=== PATIENT | male | born 1960 | race Caucasian/White ===

== ENCOUNTER 2016-11-26 20:14 | Emergency (ER) | payer BC ==
--- NOTE | 2016-11-26 21:28 | EDM.PDOC ---
ED HPI ENT - General Chief Complaint: ENT Problem Stated Complaint: BONE STUCK IN THROAT Time Seen by Provider: 11/26/16 21:05 Source of Information: Reports: Patient History Limitations: Reports: No limitations - History of Present Illness INITIAL COMMENTS - FREE TEXT/NARRATIVE: HISTORY AND PHYSICAL: History of present illness: [] Review of systems: As per history of present illness and below otherwise all systems reviewed and negative. Past medical history: As per history of present illness and as reviewed below otherwise noncontributory. Surgical history: As per history of present illness and as reviewed below otherwise noncontributory. Social history: No reported history of drug or alcohol abuse. Family history: As per history of present illness and as reviewed below otherwise noncontributory. Physical exam: Well-appearing no voice changes no stridor normal oropharynx midline trachea normal exam HEENT: Normocephalic, atraumatic, pupils normal and symmetrical, supple neck, no meningismus, normal color Lungs: Normal and symmetrical chest wall excursion bilateral with no tachypnea or increased work of breathing, grossly normal chest exam Heart: No tachycardia in triage Abdomen: Normal-appearing, nondistended, no visible mass or asymmetry Pelvis: Normal-appearing Genitourinary: Deferred Rectal exam: Deferred Extremities: Atraumatic, normal use and range of motion, no visible evidence of gross neurovascular compromise Neuro: Awake, alert, oriented. Normal and appropriate mental status. Cranial nerves grossly unremarkable. Motor function normal. Nonfocal neurologic exam. Diagnostics: [] Therapeutics: [] Impression: [] Plan: [Signs and symptoms consistent with suspected foreign body sensation for swallowing a fishbone however discussed with patient though less likely possibility of retained fishbone foreign body is exists. Soft tissue neck X-ray with no abnormal findings.] Discussed with patient importance of followup with ENT in the morning for reevaluation and to address nasopharyngeal laryngoscope evaluation and treatment of possible foreign body. Patient feels well and wants to go home. No further workup or treatment indicated. Strict return precautions given Definitive disposition and diagnosis as appropriate pending reevaluation and review of above. - Related Data Allergies/ADRs: Allergies Allergy/AdvReac Type Severity Reaction Status Date / Time No Known Allergies Allergy Verified 11/26/16 20:21 Home Meds: Home Meds Levothyroxine [Levothyroxine] 175 mcg PO DAILY 09/09/14 [History] Past Medical History Endocrine/Metabolic History: Reports: Hyperthyroidism - Infectious Disease History Infectious Disease History: Reports: Chicken pox - Past Surgical History Other Musculoskeletal Surgeries/Procedures:: left knee surgery Social & Family History - Family History Family Medical History: Noncontributory - Tobacco Use Smoking Status *Q: Current Every Day Smoker Years of Tobacco use: 30 Packs/Tins Daily: 0.5 - Caffeine Use Caffeine Use: Reports: Coffee Caffeine Use Comment: 3cups/day - Alcohol Use Days Per Week of Alcohol Use: 1 Number of Drinks Per Day: 1 Total Drinks Per Week: 1 - Recreational Drug Use Recreational Drug Use: No ED ROS ENT - Review of Systems Review Of Systems: See Below (History of present illness) ED EXAM, ENT - Physical Exam Exam: See Below (History of present illness) Course - Vital Signs Last Recorded V/S: Last Vital Signs Temp 36.6 C 11/26/16 20:17 Pulse 71 11/26/16 22:10 Resp 16 11/26/16 22:10 BP 130/72 11/26/16 22:10 Pulse Ox 98 11/26/16 22:10 - Orders/Labs/Meds Orders: Active Orders 24 hr Category Date Time Status Neck Soft Tissue [CR] Stat Exams 11/26/16 21:12 Taken Departure - Departure Time of Disposition: 21:55 Disposition: Home, Self-Care 01 Condition: good Clinical Impression: Sensation of foreign body in throat Instructions: Swallowed Foreign Body, Adult, [id number] Referrals: Samuel Branham MD [Primary Care Provider] - Forms: ED Department Discharge Additional Instructions: You have foreign body sensation in your throat from a fish bone. We are unable to see any bones on your neck x-ray. Most times the bone has caused some mild injury to your mucosa ( mucous membranes of your throat) but the offending bone has typically passed to be digested. Since she still the foreign body sensation though, we recommend that you followup with Dr. Basia Kat the ear nose and throat at [phone]. Call in the morning for an appointment tomorrow. Be sure to mention that you were in the emergency department and it feels like you still have a fish bone stuck in her throat. Return to the emergency department for any new severe or worsening symptoms - My Orders Last 24 Hours: My Active Orders 11/26/16 21:12 Neck Soft Tissue [CR] Stat - Assessment/Plan Last 24 Hours: My Active Orders 11/26/16 21:12 Neck Soft Tissue [CR] Stat
[2016-11-26 22:29] VITALS: BP 130/72
--- NOTE | 2016-11-27 12:29 | CR ---
EXAM DATE: 11/26/16 PATIENT'S AGE: 56 Patient: HUI ABDI Facility: [place], [place] Site . Site : [id number] Study: XRay ST Neck [id number]/[id number] 9:25:53 PM Ordering Physician: Juanjose Meyers Final Report: Indication: Possibly swallowed fish bone. Technique: AP and lateral views of the neck. Comparison: None. Impression: There is no appreciable foreign body/bone identified in the upper airway. No significant prevertebral soft tissue swelling or retropharyngeal gas is seen. The epiglottis appears normal. There is evidence of chronic disc degeneration at C5-6 and C6-7. Dictated by Mode Sampson MD @ 11/26/2016 9:30:34 PM Dictated by: Mode Sampson MD @ 11/26/2016 21:30:38 (Electronic Signature) Report Signed by Proxy and Original Signed Document filed in the Medical Record. RILEY
== END 2016-11-26 22:10 | disposition home or self-care (01) ==
LOC: MW.ED 20:14
DX: R09.89 Other specified symptoms and signs involving the circulatory and respiratory systems (principal); F17.210 Nicotine dependence, cigarettes, uncomplicated; Z98.890 Other specified postprocedural states; E03.9 Hypothyroidism, unspecified; Z79.899 Other long term (current) drug therapy
CPT/HCPCS: 70360; 70360-26; 99282; 99283

== ENCOUNTER 2016-11-27 13:22 | Day surgery (SDC) | payer BC ==
[~2016-11-27 13:22] MED LIST: Lidocaine 2% 5 ML SDV ONE; Midazolam 1 MG/ML 2 ML SDV ONE; Ondansetron 4 MG/2 ML SDV ONE; Propofol 200 MG/20 ML SDV ONE; Rocuronium 10 MG/ML 10 ML Syringe ONE; Succinylcholine/Normal Saline 200 MG/10 ML Syringe ONE; fentaNYL 100 MCG/2 ML SDV ONE
--- NOTE | 2016-11-27 14:06 | PCM.PREANE ---
Preanesthetic Assessment - Anesthesia/Transfusion/Family Hx Anesthesia History: Prior Anesthesia Reaction Type of Anesthesia Reaction: Excessive Nausea/Vomiting Family History of Anesthesia Reaction: No Transfusion History: No Prior Transfusion(s) - Review of Systems General: No Symptoms Pulmonary: No Symptoms Cardiovascular: No Symptoms Gastrointestinal: No symptoms Neurological: No Symptoms Other: Reports: None - Physical Assessment NPO Status Date: 11/26/16 Height: 1.83 m Weight: 98.43 kg ASA Class: 2 Mental Status: Alert & Oriented x3 Airway Class: Mallampati = 1 Dentition: Reports: Normal Dentition ROM/Head Extension: Full Lungs: Clear to auscultation, Normal respiratory effort Cardiovascular: Regular Rate, Regular Rhythm - Allergies Allergies/Adverse Reactions: Allergies Allergy/AdvReac Type Severity Reaction Status Date / Time No Known Allergies Allergy Verified 11/26/16 20:21 - Anesthesia Plan Pre-Op Medication Ordered: None - Acknowledgements Anesthesia Type Planned: General Anesthesia Pt an Appropriate Candidate for the Planned Anesthesia: Yes Alternatives and Risks of Anesthesia Discussed w Pt/Guardian: Yes Pt/Guardian Understands and Agrees with Anesthesia Plan: Yes Additional Comments: GET PreAnesthesia Questionnaire HEENT History: Reports: None Cardiovascular History: Reports: None Respiratory History: Reports: None Gastrointestinal History: Reports: None Genitourinary History: Reports: None Musculoskeletal History: Reports: None Neurological History: Reports: Other (see below) Other Neuro History: hx of motion sickness Psychiatric History: Reports: None Endocrine/Metabolic History: Reports: Hypothyroidism Hematologic History: Reports: None Immunologic History: Reports: None Oncologic (Cancer) History: Reports: None Dermatologic History: Reports: Eczema Other Dermatologic History: uses OTC medication - Infectious Disease History Infectious Disease History: Reports: Chicken pox - Past Surgical History Head Surgeries/Procedures: Reports: None HEENT Surgical History: Reports: None Cardiovascular Surgical History: Reports: None Respiratory Surgical History: Reports: None GI Surgical History: Reports: None Male Surgical History: Reports: None Endocrine Surgical History: Reports: None Neurological Surgical History: Reports: None Musculoskeletal Surgical History: Reports: Arthroscopic knee Other Musculoskeletal Surgeries/Procedures:: left knee, possibly has metal fragment in knee Oncologic Surgical History: Reports: None - SUBSTANCE USE Smoking Status *Q: Current Every Day Smoker Tobacco Use Within Last Twelve Months: Cigarettes Days Per Week of Alcohol Use: 1 Number of Drinks Per Day: 1 Total Drinks Per Week: 1 Recreational Drug Use History: No - HOME MEDS Home Medications: Home Meds Levothyroxine [Levothyroxine] 175 mcg PO DAILY 09/09/14 [History] - CURRENT (IN HOUSE) MEDS Current Meds: Current Medications Discontinued Medications Fentanyl (Sublimaze) Confirm Administered Dose 100 mcg .ROUTE .STK-MED ONE Stop: 11/27/16 13:23 Lidocaine (Xylocaine-Mpf 2%) Confirm Administered Dose 5 ml .ROUTE .STK-MED ONE Stop: 11/27/16 13:22 Midazolam HCl (Versed 1 Mg/Ml) Confirm Administered Dose 2 mg .ROUTE .STK-MED ONE Stop: 11/27/16 13:23 Ondansetron HCl (Zofran) Confirm Administered Dose 4 mg .ROUTE .STK-MED ONE Stop: 11/27/16 13:22 Propofol (Diprivan 20 Ml) Confirm Administered Dose 200 mg .ROUTE .STK-MED ONE Stop: 11/27/16 13:23 Rocuronium Hebo (Zemuron) Confirm Administered Dose 100 mg .ROUTE .STK-MED ONE Stop: 11/27/16 13:22 Succinylcholine Chloride (Succinylcholine In Ns Pf) Confirm Administered Dose 200 mg .ROUTE .STK-MED ONE Stop: 11/27/16 13:22 Preanesthetic Assessment - ANESTHESIA/TRANSFUSION/FAMILY HX Family History of Anesthesia Reaction: No - PHYSICAL ASSESSMENT Height: 1.83 m Weight: 98.43 kg - ALLERGIES Allergies/Adverse Reactions: Allergies Allergy/AdvReac Type Severity Reaction Status Date / Time No Known Allergies Allergy Verified 11/26/16 20:21
[2016-11-27] MEDS ORDERED: Scopolamine 1.5 MG Transdermal Patch TRDERM PRN (14:11)
[2016-11-27] MEDS ORDERED: fentaNYL 100 MCG/2 ML SDV ONE (14:57)
[2016-11-27] MEDS ORDERED: Dexamethasone 4 MG/ML 5 ML MDV ONE (15:03)
[2016-11-27] MEDS ORDERED: Mineral Oil/Petrolatum Ophth Oint 3.5 GM Tube ONE (15:16)
[2016-11-27] MEDS ORDERED: Neostigmine Methylsulfate 1 MG/ML 5 ML Syringe ONE (15:30)
--- NOTE | 2016-11-27 16:06 | PCM.OPNOTE ---
- General Post-Op/Procedure Note Date of Surgery/Procedure: 11/27/16 Operative Procedure(s): Direct pharyngoscopy and direct laryngoscopy with removal of fish bone Findings: Fish bone in the Left vallecula adjacent to the epiglottis Pre Op Diagnosis: Fish bone in vallecula Post-Op Diagnosis: Fish bone in vallecula Anesthesia Technique: General ET tube Primary Surgeon: Basia Kat Anesthesia Provider: Armani Garcia Split Fluid Replacement, Intraop: 1,200 EBL in mLs: 2 Condition: Good Free Text/Narrative:: Diagnosis: Left Vallecula Fish bone Procedure: Direct pharyngoscopy and laryngoscopy with removal of fish bone from the Vallecula [ CPT 27383; 85853; ] Surgeon: Basia Kat MD Anesthesia: GA Anesthesiologist: Dr Marc ONEAL Date of procedure: 11/27/2016 Indications: patient presented to my office today with history of possible left site of throat foreign body-Fishbone. A fiberoptic laryngoscopy revealed Fishbone in the left base of tongue. Removal was attempted in the clinic however unsuccessful. Informed consent was obtained and he was listed for the procedure. Findings: Minimal blood staining of Left base of tongue; A transluscent fish bone was found in Left vallecula adjacent to the Epiglottis. Rest exam was unremarkable Operation Details: An informed consent was obtained. A time out was performed and the patient was brought back to the operating room. General anesthesia was administered with an endotracheal tube. Patient was appropriately positioned on the operating table with a shoulder roll and head ring. An adult size for Russell's laryngoscope was used to visualize the vallecula-no foreign body was seen in the expected anticipated spot in the left base of tongue. The base of tongue was also palpated with a finger and no foreign body or induration or sharp object was palpable. The laryngoscope was then switched to a [place] variety and again a total pharyngoscopy and laryngoscopy was performed. The fish bone was found this lodged in the left vallecula-between the epiglottis and lateral hypopharyngeal wall. This was gently removed. A repeat endoscopy was performed and there was no trauma to the local mucosa or airway. There was slight trauma to the right lower lip. Lubricating jelly was applied. Gums and teeth were intact. This concluded the procedure and patient was handed over to anesthesia for recovery. Specimens: The removed fish bone IV fluids: 1200 ml Blood loss :2 ml Blood products: nil Disposition: PACU for recovery Follow up: PRN.
--- NOTE | 2016-11-27 16:16 | PCM.POSTAN ---
POST ANESTHESIA ASSESSMENT - MENTAL STATUS Mental Status: alert, oriented - VITAL SIGNS Pulse Rate: 50 SaO2: 98 Resp Rate: 14 Blood Pressure: 133/84 - RESPIRATORY Respiratory Status: respiratory rate WNL, airway patent, O2 saturation stable, supplemental oxygen (per nc) - CARDIOVASCULAR CV Status: pulse rate WNL, blood pressure stable - GASTROINTESTINAL GI Status: no symptoms - PAIN Pain Score: 0 - POST OP HYDRATION Hydration Status: adequate & stable - OBSERVATIONS Free Text/Narrative:: Pt states he is feeling better. Does have a slightly swollen right lower lip as a result of the procedure. Currently on [place] O2 - will tx with as pt states he feels slightly short of breath.
--- NOTE | 2016-11-27 16:34 | PCM48HPAN ---
Post Anesthesia Note - EVALUATION WITHIN 48HRS OF ANESTHETIC Vital Signs in Normal Range: Yes Patient Participated in Evaluation: Yes Respiratory Function Stable: Yes Airway Patent: Yes Cardiovascular Function Stable: Yes Hydration Status Stable: Yes Pain Control Satisfactory: Yes Nausea and Vomiting Control Satisfactory: Yes Mental Status Recovered: Yes
[2016-11-27 17:04] VITALS: BP 146/77
== END 2016-11-27 17:10 | disposition home or self-care (01) ==
LOC: MW.SDS 13:22
PROVIDERS: ATTEND Otolaryngology
DX: T18.8XXA Foreign body in other parts of alimentary tract, initial encounter (principal); E03.9 Hypothyroidism, unspecified; F17.210 Nicotine dependence, cigarettes, uncomplicated; Z79.899 Other long term (current) drug therapy; Z98.890 Other specified postprocedural states
CPT/HCPCS: 31530; 88300; J1100; J2250; J2405; J3010; 00320; J2704

== ENCOUNTER 2021-02-05 10:15 | Emergency (ER) | payer BC | END 2021-02-05 11:05 | disposition left against medical advice (07) | LOC: MW.ED 10:15 | DX: Z53.21 Procedure and treatment not carried out due to patient leaving prior to being seen by health care provider (principal) ==

== ENCOUNTER 2025-03-06 06:28 | Day surgery (SDC) | payer BC ==
[2025-03-06] MEDS: Lactated Ringers 1,000 ML IV SCH (07:25)
[2025-03-06] MEDS ORDERED: propofoL 500 MG/50 ML 50 ML ONE (07:33)
[2025-03-06] MEDS ORDERED: dexmedeTOMIDine HCl 200 MCG/2 ML SDV ONE (07:33)
[2025-03-06] MEDS ORDERED: Propofol 200 MG/20 ML SDV ONE (08:48)
[2025-03-06 09:30] VITALS: BP 143/76; PULSE 52
== END 2025-03-06 10:00 | disposition home or self-care (01) ==
LOC: MW.SDS 06:28
PROVIDERS: ATTEND Surgery
DX: D12.0 Benign neoplasm of cecum (principal); D12.8 Benign neoplasm of rectum; K52.9 Noninfective gastroenteritis and colitis, unspecified; K21.00 Gastro-esophageal reflux disease with esophagitis, without bleeding; K44.9 Diaphragmatic hernia without obstruction or gangrene; K57.30 Diverticulosis of large intestine without perforation or abscess without bleeding; K64.8 Other hemorrhoids; Z88.5 Allergy status to narcotic agent; E03.9 Hypothyroidism, unspecified; Z79.890 Hormone replacement therapy; Z79.899 Other long term (current) drug therapy
CPT/HCPCS: 43239; 45380; 45385; J2371; J2704; J7120; 00813